=== PATIENT | female | born 1995 | race Caucasian/White ===

== ENCOUNTER 2023-03-23 11:07 | Outpatient (OUT) | payer SELFPAY ==
[2023-03-23 12:34] LABS: HCG Quantitative <1 mIU/mL
== END 2023-03-23 11:08 | disposition home or self-care (01) ==
LOC: LAB 11:08
PROVIDERS: Visit Provider Obstetrics & Gynecology
DX: N92.6 Irregular menstruation, unspecified (principal)
CPT/HCPCS: 36415; 84702

== ENCOUNTER 2024-01-28 20:44 | Outpatient (REF) | payer BC, SELFPAY ==
[2024-01-31 18:10] LABS: Age Gdln ACOG Testing Note (.); IGP, rfx Aptima HPV ASCU Note (.)
== END 2024-01-28 20:45 | disposition home or self-care (01) ==
LOC: LAB 20:44
PROVIDERS: Visit Provider Obstetrics & Gynecology
DX: Z01.419 Encounter for gynecological examination (general) (routine) without abnormal findings (principal)
CPT/HCPCS: 88175

== ENCOUNTER 2024-01-30 09:46 | Outpatient (OUT) | payer BC, SELFPAY | END 2024-01-30 09:47 | disposition home or self-care (01) | LOC: PST 09:47 | PROVIDERS: Visit Provider Obstetrics & Gynecology | DX: Z01.818 Encounter for other preprocedural examination (principal); Z30.2 Encounter for sterilization ==

== ENCOUNTER 2024-02-01 06:07 | Day surgery (SDC) | payer BC, SELFPAY ==
[2024-01-30 10:11] VITALS: BP 124/81; PULSE 88; TEMP 36.5; O2SAT 99; BMI 53.7
[2024-02-01] VITALS (14 sets, daily range): BP systolic 143–197; BP diastolic 79–110; PULSE 89–102; TEMP 36.1–36.4; O2SAT 95–100; BMI 53.7
[2024-02-01 06:21] LABS: Basophils Percent Auto 0.2 % (0.2-2.0); Eosinophils Absolute Auto 0.1 10^3/uL (0.0-0.7); Hematocrit 36.7 % (36.0-48.0); Hemoglobin 11.3 g/dL (12.0-16.0); Immature Granulocytes Abs Auto 0.06 10^3/uL (0.00-0.03); Immature Granulocytes Pct Auto 0.5 % (0.0-0.5); Lymphocytes Absolute Auto 3.2 10^3/uL (1.2-3.8); Lymphocytes Percent Auto 26.7 % (20.5-60.0); Mean Corpuscular HGB Conc 30.8 g/dL (29.9-35.2); Mean Corpuscular Hemoglobin 25.9 pg (26.7-34.0); Mean Platelet Volume 10.1 fL (9.5-13.5); Monocytes Absolute Auto 0.6 10^3/uL (0.3-0.8); Neutrophils Absolute Auto 8.1 10^3/uL (1.4-6.5); Neutrophils Percent Auto 66.6 % (43.0-75.0); Platelet Count 300 10^3/uL (150-450); Red Blood Count 4.37 10^6/uL (4.20-5.40); Red Cell Distribution Width 14.5 % (11.0-15.0); White Blood Count 12.2 10^3/uL (4.0-11.0)
[2024-02-01] MEDS: LACTATED RINGER'S SOLUTION 1,000 ML 50 ML IV (06:45)
[2024-02-01 06:52] LABS: HCG Quantitative <1 mIU/mL
[2024-02-01] MEDS: LACTATED RINGER'S SOLUTION 1,000 ML 1000 ML IV (08:44)
--- NOTE | 2024-02-01 09:27 | P.ON_ITS ---
Brief Operative Note Date of procedure: 02/01/24 Pre-op diagnosis general: desires permanent sterilization, multiparity Post-op diagnosis: same as pre-op Procedure: NAME OF PROCEDURE: robotic assisted bilateral laparoscopic salpingectomy PROCEDURE: The patient was taken back to the Operating Room where she was given general anesthesia without difficulty. She was then prepped and draped in the normal sterile fashion after being placed in a dorsal lithotomy position. A wet sponge stick was placed into the patient's vagina. Attention was then turned to the patient's abdomen, where a scalpel was used to make a small infraumbilical incision. The S retractors were then used to dissect the underlying layers until the fascia could be seen. The fascia was then grasped with Noemy clamps and tented up. A knife was then used to make a small incision to the fascia. The muscle was identified, at that time two sutures of #0 Vicryl on a GI needle was then used and placed through the fascia. the peritoneum was then identified and entered bluntly. The 10-4 Edith was then placed into the patient's abdomen. This was confirmed with direct visualization of the bowel, using the laparoscope. The patient's abdomen was then insufflated using approximately 4 liters of CO2 gas. Survey of the patient's abdomen demonstrated ovaries were normal in appearance as well as both tubes and uterus. A second and third rt and lt lateral robotic ports which were 8 mm in size, was then placed after the skin incision was made under direct visualization . the robotic arms were engaged. The patient's tube on the patient's right side was identified and tented up using a grasper, the ligasure apparatus was then used to come across the mesosalpingx from the fimbriated end to the insertion site at the uterus, the tube was then amputated and removed in its entirety. This was done on the contralateral side. The tubes were the removed from the patients abdomen. Excellent hemostasis was noted. The lateral ports were then moved under direct visualization with excellent hemostasis. All instruments were removed from the patient's abdomen. The fascia was closed using the #0 Vicryl on GI needle. The skin was closed using 4-0 Vicryl subcuticularly. All instruments were removed from the patient's vagina as well. The patient was taken out of the dorsal lithotomy position and placed in the supine position and taken to recovery in s table condition. Sponge, lap and needle counts were correct x2. Anesthesia: TINOA Surgeon: Lencho Sanabria Machine Trimmer: Tea Reynoso Estimated blood loss (mL): 5 Pathology: other (tubes) Condition: stable Disposition: PACU Urinary Catheter Management Urinary Catheter Management Urethral: Cath placed during this visit: no
[2024-02-01] MEDS: HYDROCODONE/ACET 5-325 MG TABLET 1 TAB PO (09:44)
[2024-02-01] MEDS: HYDROMORPHONE HCL 0.5 MG/0.5 ML SYRINGE IV (09:44)
== END 2024-02-01 11:00 | disposition home or self-care (01) ==
PROVIDERS: Visit Provider Obstetrics & Gynecology
PROC: (CPT 840; principal; 2024-02-01 07:30)
DX: Z30.2 Encounter for sterilization (principal); E66.01 Morbid (severe) obesity due to excess calories; Z68.43 Body mass index [BMI] 50.0-59.9, adult; Z86.32 Personal history of gestational diabetes
CPT/HCPCS: 58661; 36415; 84702; 85025; 88302; J0360; J1100; J1170; J1885; J2405; J2704; J3010